=== PATIENT | male | born 1970 | race American Indian/Alaskan Native ===

== ENCOUNTER 2020-08-17 11:25 | Emergency (ER) | payer SELFPAY ==
[2020-08-17 11:59] VITALS: BP 143/100
--- NOTE | 2020-08-17 12:13 | Emergency Department Report ---
Chief Complaint: Headache Stated Complaint: HEAD PAIN/COVID Time Seen by Provider: 08/17/20 12:04 - HPI History of Present Illness: Patient is a 50-year-old male presents emergency room with complaints of headache, chills, sweats that began this morning. Patient states that his tested positive for COVID-19 3 days ago and is admitted in the hospital. He denies any nausea, vomiting, diarrhea, fever, shortness of breath, chest pain, abdominal pain. No past medical history. No allergies medications. Patient states he received COVID-19 testing 2 days ago and is awaiting his results. vitals are normal on exam: non toxic appearing, no acute distress atraumatic, normocephalic moist mucus membranes EOMI, normal appearance of eyes breath sounds are clear bilaterally, no wheezing, rales, rhonchi heart rate and rhythm are normal, no murmurs, gallops or rubs A&O x4, no focal neuro deficit, normal gait skin is warm, dry, intact pt is presenting with concerns for COVID 19 due to having exposure his only symptoms are chills, sweats and headache He denies any nausea, vomiting, diarrhea, fever, shortness of breath, chest pain, abdominal pain. his vitals are normal, no fever, tachycardia, hypoxia pt does not meet hospital criteria for COVID 19 hospital testings or admission pt has no clincal s/sx of bacterial PNA, bronchitis, or dehydration advised pt Please increase your fluid intake over the next several days. May take Tylenol as needed for fever or body aches. May take [id number] cold symptom relief medication such as Mucinex or TheraFlu. Follow-up with a primary care doctor for reexamination. Return to emergency room immediately for any new or worsening symptoms including but not limited to difficulty breathing, shortness of breath, severe chest pain, unable to tolerate by mouth intake, etc. Please self quarantine for 10 days from the onset of your symptoms. Please do not go out in public. If you are around others at home please wear a mask. If you need to cough or sneeze please do so in a napkin and immediately throw it away and immediately wash your hands. Wash your hands frequently. Wipe everything down. medical screening exam performed and there is no threat to life or limb at this time - Exam Vital Signs: Vital Signs 08/17/20 11:58 Temperature 98.4 F Pulse Rate 85 Respiratory 16 Rate Blood Pressure 143/100 [Right] O2 Sat by Pulse 100 Oximetry MSE screening note: Focused history and physical exam performed. Due to findings the following was ordered: ED Disposition for MSE Clinical Impression: Exposure to COVID-19 virus Disposition: MED SCREENING EXAM-LEFT Is pt being admited?: No Does the pt Need Aspirin: No Condition: Stable Instructions: COVID-19, COVID-19: How to Protect Yourself and Others - CDC, Prevent the Spread of COVID-19 if You Are Sick - [facility] Additional Instructions: Please increase your fluid intake over the next several days. May take Tylenol as needed for fever or body aches. May take rucs-bvi-fgwapsu cold symptom relief medication such as Mucinex or TheraFlu. Follow-up with a primary care doctor for reexamination. Return to emergency room immediately for any new or worsening symptoms including but not limited to difficulty breathing, shortness of breath, severe chest pain, unable to tolerate by mouth intake, etc. Please self quarantine for 10 days from the onset of your symptoms. Please do not go out in public. If you are around others at home please wear a mask. If you need to cough or sneeze please do so in a napkin and immediately throw it away and immediately wash your hands. Wash your hands frequently. Wipe everything down. Referrals: ITZEL CORTES MD [Staff Physician] - 2-3 Days [facility] [Provider Group] - 2-3 Days [facility] [Outside] - 2-3 Days Time of Disposition: 12:12 Print Language: VIETNAMESE
== END 2020-08-17 12:43 | disposition left against medical advice (07) ==
LOC: ED 11:25
DX: R51.9 Headache, unspecified (principal); Z53.21 Procedure and treatment not carried out due to patient leaving prior to being seen by health care provider